=== PATIENT | female | born 1985 | race Caucasian/White ===

== ENCOUNTER 2018-01-30 05:04 | Inpatient (IN) | payer OTHER ==
[~2018-01-30 05:04] MED LIST: BUTORPHANOL 1 MG/ML INJ IV ONE; PROMETHAZINE 25 MG/ML VIAL IV PRN; Ringers Lactate 1,000 ML IV PRN; Ringers Lactate 1,000 ML IV SCH
[2018-01-30] MEDS ORDERED: BUTORPHANOL 1 MG/ML INJ ONE (05:16)
[2018-01-30] MEDS ORDERED: PROMETHAZINE 25 MG/ML VIAL ONE (05:16)
[2018-01-30] MEDS ORDERED: LIDOCAINE 2% INJ, 20 mL 0 ML ONE (05:52)
[2018-01-30] MEDS ORDERED: METHYLERGONOVINE 0.2MG/ML AMP IM ONE (05:53)
[2018-01-30] MEDS ORDERED: CARBOPROST TROME 250 MCG/ML IM ONE (05:53)
[2018-01-30] MEDS ORDERED: ROPIVACAINE HCL 20 ML ONE (05:53)
[2018-01-30] MEDS ORDERED: ROPIVACAINE HCL 100 ML IV ONE (05:54)
[2018-01-30] MEDS ORDERED: OXYTOCIN/LR 20 UNIT/1,000 ML BAG IV SCH (06:00)
[2018-01-30 06:04] LABS: RPR Titer ND
[2018-01-30 06:06] LABS: Urine Appearance CLOUDY; Urine Bilirubin NEGATIVE (NEG); Urine Blood 3+ (NEG); Urine Color DK YELLOW; Urine Glucose NEGATIVE (NEG); Urine Protein TRACE (NEG); Urine Urobilinogen 0.2 mg/dL (0.2-1.0); Urine pH 6.5 (5.0-7.0)
[2018-01-30 06:07] LABS: Urine Microscopic Reflex ORDER UMIC
[2018-01-30 06:16] LABS: Absolute Lymphocytes (CBC) 1.4 K/uL (0.7-4.9); Absolute Monocytes 0.7 K/uL (0.1-1.3); Absolute Neutrophil 14.2 K/uL (1.8-8.0); Basophils % 0.4 % (0-1.3); Eosinophils % 0.3 % (0-4.4); Hematocrit 41.7 % (36.0-45.0); Lymphocytes % 8.6 % (15.3-44.8); MCH 31.6 pg (27.0-35.0); MCV 94.8 fL (80-100); MPV 10.5 fL (7.6-11.3); Monocytes % 4.3 % (3.3-12.3)
[2018-01-30 06:25] LABS: Urine Bacteria <20 /HPF (<20); Urine Culture Reflex Order REFLEXED; Urine RBC TNTC /HPF (NONE SEEN)
[2018-01-30] MEDS ORDERED: FENTANYL CITR 100 MCG/2 ML ONE (06:25)
[2018-01-30 07:02] LABS: Blood Morphology Comment NOT SEEN (NOT SEEN); Platelet Estimate ADEQ; Urine White Blood Cell Casts OK
[2018-01-30 07:28] VITALS: BMI 29.2
--- NOTE | 2018-01-30 11:26 | PREOPHP ---
Date of Admission: 01/30/2018 History Of Present Illness: Ms. Simons is a 32-year-old female, 1, para 0 now at approximately 39 plus weeks gestation. She has been followed by me during this w ith complications of hyperemesis gravidarum with continued symptoms late in the . She was s een earlier in the evening and prodromal labor noted to be 1+ cm, dismissed with irregular contractio ns, returns again noted to be 6 cm. She will be admitted for delivery. Past Medical History: Please see record. Family History: Please see record. Review of Systems: See reports. No recent cough, cold, fever, or chills. She has continued with some intermittent naus ea. She denies any breast lumps. She denies any urine or bowel symptoms. She has noted bloody vagi nal show with continuation of her contractions in the evening. She denies rupture of membranes. Physical Examination: General: Reveals female. Neck: Supple without adenopathy or thyromegaly. Lungs: Clear. Cardiac: Regular rate and rhythm rate and rhythm without murmurs. Abdomen: Estimated weight approximately 7+ to 8 pounds. Pelvic cervix now noted to be 7 cm, v ertex, and -1 station. EXTREMITIES: Show trace to 1+ lower extremity edema. Impression: Term 39 plus weeks , active labor. Plan: The patient is admitted. We will hydrate. Obtain lab work. We will plan epidural anesthesia . We will use IV analgesia prior to that as required. JOYA/SEVERINO Voice ID: [id number]
[2018-01-30] MEDS ORDERED: LIDOCAINE 1% 20 ML MDV ONE (12:10)
[2018-01-30] MEDS ORDERED: CARBOPROST TROME 250 MCG/ML IM PRN (12:41)
[2018-01-30] MEDS ORDERED: METHYLERGONOVINE 0.2MG/ML AMP IM PRN (12:41)
[2018-01-30] MEDS ORDERED: ONDANSETRON 4 MG (ODT) TAB PO PRN (12:41)
[2018-01-30] MEDS ORDERED: Oxycodone HCl/Acetaminophen 1 TAB TAB PO PRN (12:41)
--- NOTE | 2018-01-30 12:46 | P.BOP ---
Preoperative diagnosis: 39+wk , prolonged second stage of labor, late onset variable decel Postoperative diagnosis: same, meconium stained AF, uterine atony Primary procedure: Low outlet forcep delivery 4000gm viable male infant Secondary procedure: Repair of 3rd degree laceration Other procedure(s): curretage of endometrium Estimated blood loss: greater than 500ml Anesthesia: epidural Transferred to: Other ([phone])
[2018-01-30] MEDS ORDERED: PROMETHAZINE 25 MG/ML VIAL IV ONE (12:47)
[2018-01-30] MEDS ORDERED: OXYTOCIN/LR 20 UNIT/1,000 ML BAG IV ONE (14:32)
[2018-01-30] MEDS: OXYTOCIN/LR 20 UNIT/1,000 ML BAG IV SCH ×2 (14:35→19:40)
[2018-01-30 16:16] LABS: Absolute Lymphocytes (CBC) 0.9 K/uL (0.7-4.9); Absolute Monocytes 1.6 K/uL (0.1-1.3); Absolute Neutrophil 28.3 K/uL (1.8-8.0); Basophils % 0.2 % (0-1.3); Hematocrit 34.5 % (36.0-45.0); Lymphocytes % 2.8 % (15.3-44.8); MCH 32.2 pg (27.0-35.0); MCV 95.7 fL (80-100); MPV 9.9 fL (7.6-11.3); Monocytes % 5.4 % (3.3-12.3)
[2018-01-30] MEDS: METHYLERGONOVINE 0.2 MG TAB PO PRN ×2 (16:22→21:00)
[2018-01-30 16:40] LABS: Blood Morphology Comment NOT SEEN (NOT SEEN); Platelet Estimate ADEQ
[2018-01-30] MEDS ORDERED: CEFAZOLIN/SWI 2gm 2 GM/20 ML SYR ONE (16:56)
[2018-01-30] MEDS ORDERED: CEFAZOLIN/SWI 2gm 2 GM/20 ML SYR IVP SCH (17:00)
[2018-01-30] MEDS: Oxycodone HCl/Acetaminophen 1 TAB TAB PO PRN (18:10)
[2018-01-30] MEDS: DOCUSATE CALCIUM 240 MG CAP PO SCH (21:00)
[2018-01-30] MEDS: IBUPROFEN 200 MG TAB PO PRN (21:00)
[2018-01-30] MEDS ORDERED: DOCUSATE CALCIUM 240 MG CAP PO ONE (21:02)
[2018-01-31] MEDS: CEFAZOLIN/SWI 2gm 2 GM/20 ML SYR IVP SCH ×2 (01:55→08:47)
--- NOTE | 2018-01-31 02:11 | DN ---
Surgeon: Bird Mcdowell MD Indication And Procedure: Ms. Simons is 32-year-old female 1, para 0, at 39+ we eks' gestation, admitted in active labor, noted to be approximately 5-6 cm dilated. After placement of epidural catheter and augmentation of labor, she had a first stage of labor of approximately 9 altagracia rs, second stage of labor of 2 hours and 27 minutes. She delivered by low outlet forceps of an 8 laureen nds 14 ounces male infant, 8 and 9, over a midline laceration with third-degree extension. Inf ant was delivered vertex OA. Cord was clamped. After delayed cord clamping, it was clamped, cut, an d infant was placed on the mother's upper abdomen. Cord blood was obtained. The placenta was sponta neously expelled. She was noted to have uterine atony and was given an initial dose of 0.2 mg IM of methargen and then 250 mcg of Hemabate IM. Vigorous fundal massage performed. Brief curettage of th e endometrium to rule out retained tissue was performed. The laceration was repaired in the usual fa shion with 3-0 Vicryl suture. Estimated total blood loss was greater than 500 cc. JOYA/SEVERINO Voice ID: [id number] Report ID: [id number]
[2018-01-31] MEDS: Oxycodone HCl/Acetaminophen 1 TAB TAB PO PRN ×2 (02:58→13:18)
[2018-01-31 05:30] LABS: Absolute Lymphocytes (CBC) 1.9 K/uL (0.7-4.9); Absolute Monocytes 1.1 K/uL (0.1-1.3); Absolute Neutrophil 13.6 K/uL (1.8-8.0); Basophils % 0.5 % (0-1.3); Eosinophils % 0.4 % (0-4.4); Hematocrit 27.1 % (36.0-45.0); Lymphocytes % 11.5 % (15.3-44.8); MCH 32.5 pg (27.0-35.0); MCV 96.1 fL (80-100); MPV 9.8 fL (7.6-11.3); Monocytes % 6.5 % (3.3-12.3); RBC Red Blood Cell Count 2.82 M/uL (3.86-4.86)
[2018-01-31] MEDS: IBUPROFEN 200 MG TAB PO PRN (07:15)
[2018-01-31] MEDS: DOCUSATE CALCIUM 240 MG CAP PO SCH (08:47)
[2018-01-31 14:11] VITALS: BP 107/67
[2018-01-31 14:25] VITALS: TEMP 97.9
[2018-01-31 22:31] LABS: RPR (Rapid Plasma Reagin) NON-REACT (NON-REACT)
--- NOTE | 2018-02-01 04:31 | DS ---
Date of Discharge: 01/31/2018 Ms. Simons is a 32-year-old female, 1, para 0 at 39 plus weeks' gestation, who w as admitted in active labor, delivered an 8-pound 14-ounce male infant, 8 and 9 by low outlet f orceps after a prolonged second stage of labor. She suffered uterine atony, was treated w ith various agents, but did have greater than 500 cc blood loss with lab work including an admission hemoglobin and hematocrit of 13.9 and 41.7, dismissal of 9.2 and 27.1. Because the elevation of whit e blood cell count up to 30,000 with an approximately 5 hours of delivery, she was begun on Ancef IV 2 g q.8 hours and will be dismissed on Keflex 500 mg 1 p.o. q.6 hours for an additional 5 days. She is to continue taking her iron and vitamins because she suffered a third-degree laceration. She will be dismissed to continue taking a stool softener for a 6-week period of time. She had a urinalysis that did show leukocyte esterase and urine is cultured. She has nonreactive RPR. She is Rh negative blood type, will be given RhoGAM as indicated. JOYA/SEVERINO Voice ID: [id number] Report ID: [id number]
[2018-02-01 11:55] LABS: HBsAG Nonreactive (Nonreactive)
== END 2018-01-31 14:30 | disposition home or self-care (01) | DRG 774 ==
LOC: 2ND-WC 05:04
PROVIDERS: ADMIT Specialist; ATTEND Specialist
PROC: 10D07Z3 Extraction of Products of Conception, Low Forceps, Via Natural or Artificial Opening (ICD-10-PCS; principal; 2018-01-30)
PROC: 0DQR0ZZ Repair Anal Sphincter, Open Approach (ICD-10-PCS; 2018-01-30)
DX: O63.1 Prolonged second stage (of labor) (principal); O72.1 Other immediate postpartum hemorrhage; O70.0 First degree perineal laceration during delivery; O76 Abnormality in fetal heart rate and rhythm complicating labor and delivery; Z3A.39 39 weeks gestation of pregnancy; Z37.0 Single live birth
CPT/HCPCS: 36415; 81003; 81015; 85025; 86592; 86850; 86870; 86900; 86901; 87086; 87088; 87340; 99218; J0595; J0690; J2210; J2550; J2590; J2795; J3010

== ENCOUNTER 2018-03-30 14:23 | Emergency (ER) | payer OTHER ==
--- NOTE | 2018-03-30 15:28 | RAD REPORT ---
EXAM DESCRIPTION: CT - Head Brain Wo Cont - 03/30/2018 3:23 pm CLINICAL HISTORY: Dizziness, nausea, blunt force trauma to the head, history of concussion COMPARISON: June 2015 TECHNIQUE: Axial 5 mm thick images of the head were obtained without IV contrast. All CT scans are performed using dose optimization technique as appropriate and may include automated exposure control or mA/KV adjustment according to patient size. FINDINGS: No intracranial hemorrhage, mass, edema or shift of mid-line structures. No acute infarcti on changes seen. No abnormal extra-axial fluid collections. Ventricles are normal. Intracranial findi ngs are similar to comparison. Mastoid air cells and visualized portions of the paranasal sinuses are clear. No acute bony findings. Small bone density along the temporal bone inferior to the IAC has not clearl y changed from prior imaging. IMPRESSION: Negative non-contrast CT head examination for acute finding. No significant change from comparison.
--- NOTE | 2018-03-30 15:33 | EDPHYS ---
Physician Documentation [facility] Name: Nancy Simons Age: 32 yrs Sex: Female : 1985 Arrival Date: 03/30/2018 Time: 14:25 Bed 19 Private MD: None, None ED Physician Raj Arambula HPI: 03/30 15:30 This 32 yrs old Female presents to ER via Ambulatory with complaints of Head charis Injury Without LOC-Adult. 15:30 The patient or guardian reports pain, tenderness. The complaints affect the forehead. charis Context of injury: The problem was sustained at home. Onset: The symptoms/episode began/occurred just prior to arrival. Associated signs and symptoms: The patient has no apparent associated signs or symptoms. Severity of symptoms: At their worst the symptoms were mild, moderate, in the emergency department the symptoms have improved. 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 - Social history:: Smoking status: Patient/guardian denies using tobacco. - Family history:: not pertinent. - Ebola Screening: : Patient negative for fever greater than or equal to 101.5 degrees Fahrenheit, and additional compatible Ebola Virus Disease symptoms Patient denies exposure to infectious person Patient denies travel to an Ebola-affected area in the 21 days before illness onset No symptoms or risks identified at this time. ROS: 15:30 Constitutional: Negative for fever, chills, and weight loss, Eyes: Negative for injury, charis pain, redness, and discharge, ENT: Negative for injury, pain, and discharge, Neck: Negative for injury, pain, and swelling, Cardiovascular: Negative for chest pain, palpitations, and edema, Respiratory: Negative for shortness of breath, cough, wheezing, and pleuritic chest pain, Abdomen/GI: Negative for abdominal pain, nausea, vomiting, diarrhea, and constipation, Back: Negative for injury and pain, : Negative for injury, bleeding, discharge, and swelling, MS/Extremity: Negative for injury and deformity, Skin: Negative for injury, rash, and discoloration, Psych: Negative for depression, anxiety, suicide ideation, homicidal ideation, and hallucinations, Allergy/Immunology: Negative for hives, rash, and allergies, Endocrine: Negative for neck swelling, polydipsia, polyuria, polyphagia, and marked weight changes. 15:30 Neuro: Positive for headache. Exam: 15:30 Constitutional: This is a well developed, well nourished patient who is awake, alert, charis and in no acute distress. Head/Face: Normocephalic, atraumatic. Eyes: Pupils equal round and reactive to light, extra-ocular motions intact. Lids and lashes normal. Conjunctiva and sclera are non-icteric and not injected. Cornea within normal limits. Periorbital areas with no swelling, redness, or edema. ENT: Nares patent. No nasal discharge, no septal abnormalities noted. Tympanic membranes are normal and external auditory canals are clear. Oropharynx with no redness, swelling, or masses, exudates, or evidence of obstruction, uvula midline. Mucous membranes moist. Neck: Trachea midline, no thyromegaly or masses palpated, and no cervical lymphadenopathy. Supple, full range of motion without nuchal rigidity, or vertebral point tenderness. No Meningismus. Chest/axilla: Normal chest wall appearance and motion. Nontender with no deformity. No lesions are appreciated. Cardiovascular: Regular rate and rhythm with a normal S1 and S2. No gallops, murmurs, or rubs. Normal PMI, no JVD. No pulse deficits. Respiratory: Lungs have equal breath sounds bilaterally, clear to auscultation and percussion. No rales, rhonchi or wheezes noted. No increased work of breathing, no retractions or nasal flaring. Abdomen/GI: Soft, non-tender, with normal bowel sounds. No distension or tympany. No guarding or rebound. No evidence of tenderness throughout. Back: No spinal tenderness. No costovertebral tenderness. Full range of motion. Pelvic Exam: Normal external genitalia. Speculum exam with closed cervical os, no discharge or bleeding noted. Bimanual exam with normal adnexa, no adnexal or cervical motion tenderness. Normal uterus. Vital Signs: 14:38 BP 107 / 73; Pulse 55; Resp 16; Temp 98; Pulse Ox 99% ; Weight 81.65 kg; Height 5 ft. sv 10 in. (177.80 cm); Pain 3/10; 16:30 BP 98 / 68; Pulse 53; Resp 16; Pulse Ox 99% on R/A; Pain 3/10; em 14:38 Body Mass Index 25.83 (81.65 kg, 177.80 cm) sv Zackary Coma Score: 14:38 Eye Response: spontaneous(4). Verbal Response: oriented(5). Motor Response: obeys sv commands(6). Total: 15. Trauma Score (Adult): 14:38 Eye Response: spontaneous(1); Verbal Response: oriented(1); Motor Response: obeys sv commands(2); Systolic BP: > 89 mm Hg(4); Respiratory Rate: 10 to 29 per min(4); [place] Score: 15; Trauma Score: 12 MDM: 15:05 Patient medically screened. [facility] 03/30 15:54 Order name: Urine Dipstick--Ancillary (enter results) 03/30 15:54 Order name: Urine --Ancillary (enter results) 03/30 14:44 Order name: CT Head Brain wo Cont; Complete Time: 15:29 03/30 15:05 Order name: Urine Dipstick-Ancillary (obtain specimen); Complete Time: 15:18 [facility] 03/30 15:05 Order name: Urine Test (obtain specimen); Complete Time: 15:18 [facility] Administered Medications: 15:48 Drug: Tylenol 650 mg Route: PO; em 15:56 Follow up: Response: Medication administered at discharge. em Disposition: 03/30/18 15:33 Discharged to Home. Impression: Superficial injury of head, Vomiting, Dizziness and giddiness. - Condition is Stable. - Discharge Instructions: Dizziness, Head Injury, Adult, Head Injury, Adult, [id number], Dizziness, [id number]. - Medication Reconciliation Form, Thank You Letter, Antibiotic Education, Prescription Opioid Use form. - Follow up: Private Physician; When: 2 - 3 days; Reason: Recheck today's complaints, Continuance of care, Re-evaluation by your physician. Signatures: Dispatcher [employer] Мария Portillo RN RN sv Anderson, Corey, MD MD cha Munoz, Edgar, CONTACT LENS ASSISTANT CONTACT LENS ASSISTANT em Corrections: (The following items were deleted from the chart) 15:34 15:33 03/30/2018 15:33 Discharged to Home. Impression: Superficial injury of head; charis Vomiting. Condition is Stable. Forms are Medication Reconciliation Form, Thank You Letter, Antibiotic Education, Prescription Opioid Use. Follow up: Private Physician; When: 2 - 3 days; Reason: Recheck today's complaints, Continuance of care, Re-evaluation by your physician. charis 16:06 15:34 03/30/2018 15:33 Discharged to Home. Impression: Superficial injury of head; em Vomiting; Dizziness and giddiness. Condition is Stable. Discharge Instructions: Dizziness, Head Injury, Adult, Head Injury, Adult, [id number], Dizziness, [id number]. Forms are Medication Reconciliation Form, Thank You Letter, Antibiotic Education, Prescription Opioid Use. Follow up: Private Physician; When: 2 - 3 days; Reason: Recheck today's complaints, Continuance of care, Re-evaluation by your physician. charis
--- NOTE | 2018-03-30 15:33 | ER ---
Nurse's Notes [facility] Name: Nancy Simons Age: 32 yrs Sex: Female : 1985 Arrival Date: 03/30/2018 Time: 14:25 Bed 19 Private MD: None, None Diagnosis: Superficial injury of head;Vomiting;Dizziness and giddiness Presentation: 03/30 14:36 Presenting complaint: Patient states: slammed head into a cabinet. c/o sv dizziness/nausea. Pt appears off balance. Hx concussions. Care prior to arrival: None. 14:36 Acuity: CASSIDY 3 sv 14:36 Method Of Arrival: Ambulatory sv 15:27 Transition of care: patient was not received from another setting of care. Onset of em symptoms was March 30, 2018. Risk Assessment: Do you want to hurt yourself or someone else? Patient reports no desire to harm self or others. Initial Sepsis Screen: Does the patient meet any 2 criteria? No. Patient's initial sepsis screen is negative. Does the patient have a suspected source of infection? No. Patient's initial sepsis screen is negative. Triage Assessment: 15:05 General: Appears in no apparent distress. uncomfortable, Behavior is calm, cooperative. 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 - Social history:: Smoking status: Patient/guardian denies using tobacco. - Family history:: not pertinent. - Ebola Screening: : Patient negative for fever greater than or equal to 101.5 degrees Fahrenheit, and additional compatible Ebola Virus Disease symptoms Patient denies exposure to infectious person Patient denies travel to an Ebola-affected area in the 21 days before illness onset No symptoms or risks identified at this time. Screenin:57 Abuse screen: Denies threats or abuse. Nutritional screening: No deficits noted. em Tuberculosis screening: No symptoms or risk factors identified. Fall Risk None identified. Assessment: 15:05 General: Appears in no apparent distress. uncomfortable, Behavior is calm, cooperative. em Pain: Complains of pain in forehead Pain currently is 3 out of 10 on a pain scale. Pain began 2 hours ago. Neuro: Level of Consciousness is awake, alert, obeys commands, Oriented to person, place, time, situation. Neuro: Reports dizziness, headache frontal area, Denies blurred vision. Cardiovascular: Capillary refill < 3 seconds Patient's skin is warm and dry. Respiratory: Airway is patent Respiratory effort is even, unlabored, Respiratory pattern is regular, symmetrical. GI: Abdomen is flat, Reports nausea, Patient currently denies pain, vomiting. : No signs and/or symptoms were reported regarding the genitourinary system. EENT: Oral mucosa is moist. Derm: Skin is intact, Skin is pink, warm \T\ dry. Musculoskeletal: Capillary refill < 3 seconds, Range of motion: intact in all extremities. 15:10 Reassessment: Patient appears in no apparent distress at this time. Patient and/or ss family updated on plan of care and expected duration. Pain level reassessed. Patient is alert, oriented x 3, equal unlabored respirations, skin warm/dry/pink. 15:10 Reassessment: The previous assessment is accurate, call light remains within reach. ss 16:30 Reassessment: Patient appears in no apparent distress at this time. Patient and/or em family updated on plan of care and expected duration. Pain level reassessed. Patient is alert, oriented x 3, equal unlabored respirations, skin warm/dry/pink. Patient denies pain at this time. Patient states symptoms have improved. Vital Signs: 14:38 BP 107 / 73; Pulse 55; Resp 16; Temp 98; Pulse Ox 99% ; Weight 81.65 kg; Height 5 ft. sv 10 in. (177.80 cm); Pain 3/10; 16:30 BP 98 / 68; Pulse 53; Resp 16; Pulse Ox 99% on R/A; Pain 3/10; em 14:38 Body Mass Index 25.83 (81.65 kg, 177.80 cm) sv Zackary Coma Score: 14:38 Eye Response: spontaneous(4). Verbal Response: oriented(5). Motor Response: obeys sv commands(6). Total: 15. Trauma Score (Adult): 14:38 Eye Response: spontaneous(1); Verbal Response: oriented(1); Motor Response: obeys sv commands(2); Systolic BP: > 89 mm Hg(4); Respiratory Rate: 10 to 29 per min(4); Zackary Score: 15; Trauma Score: 12 ED Course: 14:25 Patient arrived in ED. sb2 14:26 None, None is Private Physician. sb2 14:37 Triage completed. sv 14:40 Arm band placed on right wrist. sv 15:04 Clark Samson LVN is Primary Nurse. em 15:05 Raj Arambual MD is Attending Physician. [facility] 15:21 CT completed. Patient moved to CT via wheelchair. Patient moved back from CT. cw1 15:23 CT Head Brain wo Cont In Process Unspecified. EDMS 15:27 Patient has correct armband on for positive identification. Bed in low position. Call em light in reach. 15:57 No provider procedures requiring assistance completed. Patient did not have IV access em during this emergency room visit. Administered Medications: 15:48 Drug: Tylenol 650 mg Route: PO; em 15:56 Follow up: Response: Medication administered at discharge. em Outcome: 15:33 Discharge ordered by . [facility] 16:04 Discharged to home ambulatory. em 16:04 Condition: good 16:04 Discharge instructions given to patient, Instructed on discharge instructions, follow up and referral plans. 16:06 Patient left the ED. em Signatures: Dispatcher [employer] Мария Portillo RN RN sv Anderson, Corey, MD MD cha Munoz, Edgar, LVN PERSONNEL AND PAYROLL TECHNICIAN em Rebecca Hernandez RN RN ss Woodley, Crystal cw1 Diana Hernandez sb2 Corrections: (The following items were deleted from the chart) 14:44 14:36 Presenting complaint: Patient states: slammed head into a cabinet. c/o sv dizziness/nausea. sv
[2018-03-30] MEDS ORDERED: ACETAMINOPHEN 325 MG TABLET ONE (15:48)
[2018-03-30 15:56] LABS: Urine Blood TRACE (NEG); Urine Glucose NEGATIVE (NEG); Urine Protein NEGATIVE (NEG)
[2018-03-30 16:09] VITALS: BP 107/73; TEMP 98; O2SAT 99
== END 2018-03-30 16:06 | disposition home or self-care (01) ==
LOC: ER 14:23
DX: S00.90XA Unspecified superficial injury of unspecified part of head, initial encounter (principal); W22.09XA Striking against other stationary object, initial encounter; Y93.89 Activity, other specified; Y92.009 Unspecified place in unspecified non-institutional (private) residence as the place of occurrence of the external cause; R42 Dizziness and giddiness; R11.10 Vomiting, unspecified; F32.9 Major depressive disorder, single episode, unspecified
CPT/HCPCS: 70450; 81003; 81025; 99284